=== PATIENT | female | born 1985 | race Caucasian/White ===

== ENCOUNTER → 2017-06-08 | Outpatient (CLI) | payer MEDICAID | LOC: BRMIMAGING 14:00 | PROVIDERS: ATTEND Registered Nurse | DX: S62.307D Unspecified fracture of fifth metacarpal bone, left hand, subsequent encounter for fracture with routine healing (principal) | CPT/HCPCS: 73130-PO ==

== ENCOUNTER → 2017-06-22 | Outpatient (CLI) | payer MEDICAID | LOC: BRMIMAGING 13:49 | PROVIDERS: ATTEND Registered Nurse | DX: M79.642 Pain in left hand (principal) | CPT/HCPCS: 73130-PO ==